=== PATIENT | male | born 1940 | race Hispanic/Latino ===

== ENCOUNTER 2021-11-02 14:06 | Inpatient (IN) | payer OTHER, MEDICAID, MEDICARE ==
[2021-11-02 14:50] LABS: Hemoglobin 10.5 g/dL (13.5-17.5); Mean Corpuscular HGB CONC 31.3 g/dL (32.0-36.0); Mean Corpuscular Hemoglobin 29.7 pg (27.0-33.0); Mean Corpuscular Volume 94.6 fl (81.2-95.1); Mean Platelet Volume 12.2 fl (7.4-10.4); Platelet Count 162 10x3/uL (150-450); RBC Distribution Width 13.7 % (11.5-14.5); Red Blood Cell (RBC) Count 3.54 10x6/uL (4.32-5.72); White Blood Cell (WBC) Count 5.3 10x3/uL (3.5-10.5)
[2021-11-02] MEDS ORDERED: Cefepime 2 GM VIAL ONE (14:50)
[2021-11-02 15:05] LABS: ALT (SGPT) 25 U/L (8-55); AST (SGOT) 23 U/L (5-34); Albumin 3.9 g/dL (3.4-4.8); Alkaline Phosphatase 186 U/L (40-110); Anion Gap 15 mmol/L (10-20); BUN (Urea Nitrogen) 30 mg/dL (8.4-25.7); Bilirubin, Total 0.6 mg/dL (0.2-1.2); CK (CPK) 177 U/L (30-200); Calc. Creatinine Clearance 0 mL/min (70-130); Carbon Dioxide 23 mmol/L (23-31); Chloride 107 mmol/L (98-107); Globulin 2.5 g/dL (2.4-3.5); Glucose 78 mg/dL (83-110); Lipase 18 U/L (8-78); Potassium 4.4 mmol/L (3.5-5.1); Protein, Total 6.4 g/dL (5.8-8.1); Sodium 141 mmol/L (136-145)
[2021-11-02 15:08] LABS: MDiff Complete? YES
[2021-11-02 15:10] LABS: Eosinophils 2 % (0-10); Lymphocytes 7 % (21-51); Monocytes 17 % (0-10); Neutrophil 74 % (42-75)
[2021-11-02 15:11] LABS: Platelet Morphology Comment Appears Adequate
[2021-11-02 15:40] LABS: SARS-CoV-2 NAA Rapid Test Not Detected (NotDetected)
[2021-11-02] MEDS ORDERED: ADMIXTURE FEE IVPB SCH (16:00)
[2021-11-02] MEDS ORDERED: SODIUM CHLORIDE IVPB SCH (16:00)
[2021-11-02] MEDS ORDERED: ACYCLOVIR SODIUM IVPB SCH (16:00)
[2021-11-02] MEDS ORDERED: Albuterol Sulfate 2.5 mg/3 ml Neb ONE (17:00)
[2021-11-02 17:25] LABS: Bilirubin Neg (Negative); Blood, Urine 10 (Negative); Clarity Clear (Clear); Glucose, Urine (Dipstick) Normal (Negative); Ketone, Urine 5 mg/dL (Negative); Leukocyte Negative (Negative); Nitrite Negative (Negative); Protein, Urine (Dipstick) 500 mg/dl (Neg-Trace); Specific Gravity, Urine 1.015 (1.002-1.036); Urobilinogen Normal mg/dL (Less than 2)
[2021-11-02 18:11] LABS: Bacteria/HPF 1+ HPF (None Seen); Mucous/LPF Rare LPF (<2+); RBC/HPF 0-3 HPF (0-3); Squamous Epithelial 0-3 HPF (0-3); WBC/HPF 0-3 HPF (0-3)
[2021-11-02] MEDS ORDERED: Ondansetron ODT 4 MG TAB PO PRN (19:19)
[2021-11-02] MEDS ORDERED: Acetaminophen 325 MG TAB PO PRN (19:19)
[2021-11-02] MEDS ORDERED: Dextrose 5% in Water 1,000 ML IV PRN (19:22)
[2021-11-02] MEDS ORDERED: Dextrose 50% Abboject 50 ML SYRINGE SLOW IVP PRN (19:22)
[2021-11-02] MEDS ORDERED: Ventolin HFA Inhaler 60 PUFF INHALER INH PRN (19:25)
[2021-11-02] MEDS ORDERED: hydrALAZINE 20 MG/ML VIAL SLOW IVP PRN (19:27)
[2021-11-02] MEDS ORDERED: Electrolyte Replacement Protocol FS SCH (19:30)
[2021-11-02] MEDS ORDERED: Furosemide 20 MG/2 ML VIAL SLOW IVP SCH (20:15)
[2021-11-02 20:45] LABS: CKMB 2.7 ng/mL (0-6.6)
[2021-11-02] MEDS ORDERED: Tacrolimus 1 MG CAP PO SCH (21:00)
[2021-11-02] MEDS: Atorvastatin Calcium 40 MG TAB PO SCH (21:02)
[2021-11-02] MEDS: traMADol HCl 50 MG TAB PO PRN (21:05)
[2021-11-02 21:23] VITALS: BMI 31.3
[2021-11-03] MEDS: Guaifenesin DM 100-10/5 ML UDCUP PO PRN ×4 (00:37→21:42)
[2021-11-03 04:33] LABS: Hemoglobin 9.8 g/dL (13.5-17.5); Mean Corpuscular HGB CONC 32.5 g/dL (32.0-36.0); Mean Corpuscular Volume 92.4 fl (81.2-95.1); Mean Platelet Volume 11.8 fl (7.4-10.4); Platelet Count 160 10x3/uL (150-450); RBC Distribution Width 13.5 % (11.5-14.5); Red Blood Cell (RBC) Count 3.27 10x6/uL (4.32-5.72); White Blood Cell (WBC) Count 4.2 10x3/uL (3.5-10.5)
[2021-11-03 04:45] LABS: Anion Gap 13 mmol/L (10-20); BUN (Urea Nitrogen) 31 mg/dL (8.4-25.7); Calc. Creatinine Clearance 39 mL/min (70-130); Calcium 8.8 mg/dL (7.8-10.44); Carbon Dioxide 24 mmol/L (23-31); Chloride 107 mmol/L (98-107); Glucose 108 mg/dL (83-110); Magnesium 1.8 mg/dL (1.6-2.6); Potassium 4.2 mmol/L (3.5-5.1); Sodium 140 mmol/L (136-145)
[2021-11-03] MEDS ORDERED: Vancomycin 1 GM in Premix Bag 1 BAG IVPB SCH (05:00)
[2021-11-03] MEDS ORDERED: Magnesium 2 GM/50 ML(in water) 2 GM in Premix Bag 1 BAG IVPB SCH (05:15)
[2021-11-03 05:26] LABS: MDiff Complete? YES
[2021-11-03 05:34] LABS: Band 2 % (5-11); Eosinophils 7 % (0-10); Lymphocytes 12 % (21-51); Monocytes 23 % (0-10); Neutrophil 53 % (42-75); Reactive Lymphocytes 2 % (0-10)
[2021-11-03 05:35] LABS: Platelet Morphology Comment Appears Adequate; RBC Morphology Normal
[2021-11-03] MEDS: traMADol HCl 50 MG TAB PO PRN ×3 (05:55→21:41)
[2021-11-03] MEDS: Furosemide 20 MG/2 ML VIAL SLOW IVP SCH (09:58)
[2021-11-03] MEDS: Tacrolimus 1 MG CAP PO SCH (09:58)
[2021-11-03] MEDS: Cefepime 1 GM in Sodium Chloride 0.9% 100 ML IVPB SCH ×2 (09:59→20:15)
[2021-11-03] MEDS: Aspirin 81 mg Enteric Coated Tablet PO SCH (09:59)
[2021-11-03] MEDS: Benzonatate 100 MG CAP PO SCH ×3 (09:59→20:16)
[2021-11-03] MEDS ORDERED: Dextrose 5% in Water 1,000 ML IV PRN (12:40)
[2021-11-03] MEDS ORDERED: Dextrose 50% Abboject 50 ML SYRINGE SLOW IVP PRN (12:40)
[2021-11-03] MEDS: HumaLOG 300 UNITS/3 ML VIAL SC PRN (14:15)
[2021-11-03] MEDS ORDERED: VANCOMYCIN 1.25 GM/250 ML BAG 1.25 GM in Premix Bag 1 BAG IVPB SCH (16:00)
[2021-11-03] MEDS: Atorvastatin Calcium 40 MG TAB PO SCH (20:16)
[2021-11-03] MEDS: Labetalol HCl 100 MG TAB PO SCH (20:16)
[2021-11-03] MEDS: Montelukast Sodium 10 mg Tablet PO SCH (20:16)
[2021-11-04 04:50] LABS: Hemoglobin 9.6 g/dL (13.5-17.5); Mean Corpuscular HGB CONC 32.8 g/dL (32.0-36.0); Mean Corpuscular Hemoglobin 29.9 pg (27.0-33.0); Mean Corpuscular Volume 91.3 fl (81.2-95.1); Mean Platelet Volume 11.5 fl (7.4-10.4); Platelet Count 164 10x3/uL (150-450); RBC Distribution Width 13.2 % (11.5-14.5); Red Blood Cell (RBC) Count 3.21 10x6/uL (4.32-5.72)
[2021-11-04 04:55] LABS: Anion Gap 12 mmol/L (10-20); BUN (Urea Nitrogen) 28 mg/dL (8.4-25.7); Calc. Creatinine Clearance 40 mL/min (70-130); Calcium 8.5 mg/dL (7.8-10.44); Carbon Dioxide 24 mmol/L (23-31); Chloride 102 mmol/L (98-107); Glucose 110 mg/dL (83-110); Potassium 3.9 mmol/L (3.5-5.1); Sodium 134 mmol/L (136-145)
[2021-11-04 06:33] LABS: MDiff Complete? YES
[2021-11-04 06:38] LABS: Band 3 % (5-11); Eosinophils 5 % (0-10); Lymphocytes 10 % (21-51); Monocytes 18 % (0-10); Neutrophil 61 % (42-75); Reactive Lymphocytes 1 % (0-10)
[2021-11-04 06:41] LABS: Platelet Morphology Comment Appears Adequate; RBC Morphology Normal
[2021-11-04] MEDS: Cefepime 1 GM in Sodium Chloride 0.9% 100 ML IVPB SCH ×2 (09:07→20:29)
[2021-11-04] MEDS: Amlodipine 10 MG TAB PO SCH (09:08)
[2021-11-04] MEDS: Aspirin 81 mg Enteric Coated Tablet PO SCH (09:08)
[2021-11-04] MEDS: Labetalol HCl 100 MG TAB PO SCH ×2 (09:09→20:28)
[2021-11-04] MEDS: Furosemide 20 MG/2 ML VIAL SLOW IVP SCH (09:09)
[2021-11-04] MEDS: Benzonatate 100 MG CAP PO SCH ×3 (09:09→20:28)
[2021-11-04] MEDS: Tacrolimus 1 MG CAP PO SCH (09:10)
[2021-11-04] MEDS ORDERED: Senokot S 8.6-50 MG TAB PO SCH (10:45)
[2021-11-04] MEDS: Guaifenesin DM 100-10/5 ML UDCUP PO PRN (13:46)
[2021-11-04 15:21] LABS: Vancomycin, Trough 12.4 ug/mL
[2021-11-04] MEDS: Vancomycin 1.5 GRAM/300 ML BAG 1.5 GM in Premix Bag 1 BAG IVPB SCH (16:40)
[2021-11-04] MEDS: Montelukast Sodium 10 mg Tablet PO SCH (20:28)
[2021-11-04] MEDS: Atorvastatin Calcium 40 MG TAB PO SCH (20:28)
[2021-11-04] MEDS: Senokot S 8.6-50 MG TAB PO SCH (20:34)
[2021-11-05] MEDS: Tacrolimus 1 MG CAP PO SCH (09:14)
[2021-11-05] MEDS: Amlodipine 10 MG TAB PO SCH (09:14)
[2021-11-05] MEDS: Aspirin 81 mg Enteric Coated Tablet PO SCH (09:14)
[2021-11-05] MEDS: Labetalol HCl 100 MG TAB PO SCH ×2 (09:15→21:54)
[2021-11-05] MEDS: Benzonatate 100 MG CAP PO SCH ×3 (09:15→21:41)
[2021-11-05] MEDS: Furosemide 20 MG/2 ML VIAL SLOW IVP SCH (09:15)
[2021-11-05] MEDS: Cefepime 1 GM in Sodium Chloride 0.9% 100 ML IVPB SCH ×2 (09:15→21:42)
[2021-11-05] MEDS: Senokot S 8.6-50 MG TAB PO SCH ×2 (09:15→21:41)
[2021-11-05] MEDS: Guaifenesin DM 100-10/5 ML UDCUP PO PRN ×3 (09:37→23:10)
[2021-11-05] MEDS: Vancomycin 1.5 GRAM/300 ML BAG 1.5 GM in Premix Bag 1 BAG IVPB SCH (15:25)
[2021-11-05] MEDS: Atorvastatin Calcium 40 MG TAB PO SCH (21:41)
[2021-11-05] MEDS: Montelukast Sodium 10 mg Tablet PO SCH (21:41)
[2021-11-06] MEDS: Guaifenesin DM 100-10/5 ML UDCUP PO PRN (03:40)
[2021-11-06] MEDS: Aspirin 81 mg Enteric Coated Tablet PO SCH (08:51)
[2021-11-06] MEDS: Tacrolimus 1 MG CAP PO SCH (08:51)
[2021-11-06] MEDS: Labetalol HCl 100 MG TAB PO SCH (08:52)
[2021-11-06] MEDS: Cefepime 1 GM in Sodium Chloride 0.9% 100 ML IVPB SCH (08:52)
[2021-11-06] MEDS: Benzonatate 100 MG CAP PO SCH (08:52)
[2021-11-06] MEDS: Senokot S 8.6-50 MG TAB PO SCH (08:52)
[2021-11-06] MEDS: Amlodipine 10 MG TAB PO SCH (08:52)
[2021-11-06] MEDS: Furosemide 20 MG/2 ML VIAL SLOW IVP SCH (08:52)
[2021-11-06 12:22] VITALS: BP 148/66; TEMP 97.7
[2021-11-06] MEDS: HumaLOG 300 UNITS/3 ML VIAL SC PRN (12:59)
== END 2021-11-06 14:00 | disposition home or self-care (01) | DRG 193 ==
LOC: CSHERS 14:06 → CSHTELE 18:20
PROVIDERS: ADMIT Internal Medicine; ATTEND Internal Medicine
DX: J15.9 Unspecified bacterial pneumonia (principal); I50.21 Acute systolic (congestive) heart failure; Z94.4 Liver transplant status; I13.0 Hypertensive heart and chronic kidney disease with heart failure and stage 1 through stage 4 chronic kidney disease, or unspecified chronic kidney disease; J12.89 Other viral pneumonia; E78.00 Pure hypercholesterolemia, unspecified; E11.22 Type 2 diabetes mellitus with diabetic chronic kidney disease; F41.9 Anxiety disorder, unspecified; K21.9 Gastro-esophageal reflux disease without esophagitis; Z20.822 Contact with and (suspected) exposure to COVID-19; C4A.9 Merkel cell carcinoma, unspecified; N18.30 Chronic kidney disease, stage 3 unspecified; B97.89 Other viral agents as the cause of diseases classified elsewhere; D63.1 Anemia in chronic kidney disease; Z79.4 Long term (current) use of insulin; Z85.038 Personal history of other malignant neoplasm of large intestine; Z85.05 Personal history of malignant neoplasm of liver; Z95.5 Presence of coronary angioplasty implant and graft; Z90.49 Acquired absence of other specified parts of digestive tract; Z87.891 Personal history of nicotine dependence
CPT/HCPCS: 36415; 36416; 80048; 80053; 80202; 81003; 81015; 82550; 82553; 83605; 83690; 83735; 83880; 84484; 85025; 87040; 87077; 87149; 87633; 93005; 93306; 94760; 94799; 96365; 96366; 96367; 96368; J0133; J0692; J1815; J1940; J3370; J3475; J3490; J7050; J7507; J7611; J7620; U0002

== ENCOUNTER 2022-02-23 13:06 | Inpatient (IN) | payer OTHER, MEDICAID ==
[2022-02-23 14:34] LABS: Hemoglobin 9.6 g/dL (13.5-17.5); MDiff Complete? YES; Mean Corpuscular HGB CONC 32.1 g/dL (32.0-36.0); Mean Corpuscular Hemoglobin 29.5 pg (27.0-33.0); Platelet Count 111 10x3/uL (150-450); RBC Distribution Width 13.3 % (11.5-14.5); Red Blood Cell (RBC) Count 3.25 10x6/uL (4.32-5.72); White Blood Cell (WBC) Count 4.1 10x3/uL (3.5-10.5)
[2022-02-23 14:42] LABS: ALT (SGPT) 18 U/L (8-55); AST (SGOT) 26 U/L (5-34); Albumin 3.7 g/dL (3.4-4.8); Alkaline Phosphatase 95 U/L (40-110); Anion Gap 17 mmol/L (10-20); BUN (Urea Nitrogen) 44 mg/dL (8.4-25.7); Bilirubin, Total 0.3 mg/dL (0.2-1.2); Calc. Creatinine Clearance 0 mL/min (70-130); Calcium 8.1 mg/dL (7.8-10.44); Carbon Dioxide 19 mmol/L (23-31); Chloride 107 mmol/L (98-107); Globulin 2.1 g/dL (2.4-3.5); Glucose 172 mg/dL (83-110); Potassium 5.1 mmol/L (3.5-5.1); Protein, Total 5.8 g/dL (5.8-8.1); Sodium 138 mmol/L (136-145)
[2022-02-23 14:57] LABS: CKMB 1.9 ng/mL (0-6.6)
[2022-02-23 15:21] LABS: Eosinophils 1 % (0-10); Lymphocytes 16 % (21-51); Monocytes 17 % (0-10); Neutrophil 66 % (42-75)
[2022-02-23 15:23] LABS: Platelet Morphology Comment Appears Decreased
[2022-02-23 15:27] LABS: Bilirubin Neg (Negative); Blood, Urine 25 (Negative); Clarity Clear (Clear); Glucose, Urine (Dipstick) Normal (Negative); Ketone, Urine Negative (Negative); Leukocyte Negative (Negative); Nitrite Negative (Negative); Protein, Urine (Dipstick) 500 mg/dl (Neg-Trace); Urobilinogen Normal mg/dL (Less than 2)
[2022-02-23 15:44] LABS: Bacteria/HPF Rare-Few HPF (None Seen); Squamous Epithelial 0-3 HPF (0-3); WBC/HPF 0-3 HPF (0-3)
[2022-02-23] MEDS ORDERED: Aspirin 325 MG TAB ONE (15:47)
[2022-02-23] MEDS ORDERED: Azithromycin 500 MG VIAL ONE (15:47)
[2022-02-23] MEDS ORDERED: cefTRIAXone\\ROCEPHIN 1 GM VIAL ONE (15:47)
[2022-02-23] MEDS ORDERED: Dextrose 50% Abboject 50 ML SYRINGE SLOW IVP PRN (17:04)
[2022-02-23] MEDS ORDERED: Dextrose 5% in Water 1,000 ML IV PRN (17:04)
[2022-02-23] MEDS ORDERED: Ondansetron ODT 4 MG TAB PO PRN (17:06)
[2022-02-23] MEDS ORDERED: Senokot S 8.6-50 MG TAB PO PRN (17:06)
[2022-02-23] MEDS ORDERED: Sodium Chloride 0.9% 1,000 ML IV SCH ×2 (17:15→18:03)
[2022-02-23 17:45] LABS: Magnesium 1.7 mg/dL (1.6-2.6)
[2022-02-23 17:47] LABS: Troponin I 0.041 ng/mL (< 0.028)
[2022-02-23] MEDS ORDERED: Nitroglycerin 0.4 MG TAB (25 Tab Bottle) SL PRN (17:57)
[2022-02-23 20:02] VITALS: BMI 28.1
[2022-02-23 20:19] LABS: Troponin I 0.053 ng/mL (< 0.028)
[2022-02-23] MEDS: traMADol HCl 50 MG TAB PO PRN (20:26)
[2022-02-23] MEDS: Atorvastatin Calcium 40 MG TAB PO SCH (20:26)
[2022-02-23] MEDS: Acetaminophen 325 MG TAB PO PRN (20:26)
[2022-02-23] MEDS: Enoxaparin Sodium 30 MG/0.3 ML SYRINGE SC SCH (20:27)
[2022-02-24 04:42] LABS: Hemoglobin 9.9 g/dL (13.5-17.5); Mean Corpuscular HGB CONC 33.2 g/dL (32.0-36.0); Mean Corpuscular Hemoglobin 29.8 pg (27.0-33.0); Mean Corpuscular Volume 89.8 fl (81.2-95.1); Mean Platelet Volume 12.4 fl (7.4-10.4); Platelet Count 111 10x3/uL (150-450); RBC Distribution Width 13.4 % (11.5-14.5); Red Blood Cell (RBC) Count 3.32 10x6/uL (4.32-5.72); White Blood Cell (WBC) Count 3.6 10x3/uL (3.5-10.5)
[2022-02-24 04:47] LABS: Legionella Urinary Ag Negative (Negative); Strep pneumo Urine Ag NEGATIVE (NEGATIVE)
[2022-02-24 04:59] LABS: Sodium 141 mmol/L (136-145)
[2022-02-24 05:00] LABS: Anion Gap 15 mmol/L (10-20); BUN (Urea Nitrogen) 39 mg/dL (8.4-25.7); Calc. Creatinine Clearance 31 mL/min (70-130); Calcium 8.4 mg/dL (7.8-10.44); Carbon Dioxide 20 mmol/L (23-31); Chloride 111 mmol/L (98-107); Glucose 116 mg/dL (83-110); Potassium 4.6 mmol/L (3.5-5.1)
[2022-02-24 05:28] LABS: MDiff Complete? YES
[2022-02-24 05:35] LABS: Band 4 % (5-11); Eosinophils 2 % (0-10); Lymphocytes 20 % (21-51); Monocytes 22 % (0-10); Neutrophil 50 % (42-75); Reactive Lymphocytes 1 % (0-10)
[2022-02-24 05:36] LABS: Platelet Morphology Comment Appears Decreased
[2022-02-24 05:37] LABS: RBC Morphology Normal
[2022-02-24] MEDS: Dexamethasone 20 MG/5 ML VIAL SLOW IVP SCH ×2 (09:28→20:40)
[2022-02-24] MEDS: Tacrolimus 1 MG CAP PO SCH (09:28)
[2022-02-24] MEDS: Amlodipine 10 MG TAB PO SCH (09:29)
[2022-02-24] MEDS: Aspirin 81 mg Enteric Coated Tablet PO SCH (09:29)
[2022-02-24] MEDS ORDERED: REMDESIVIR 100 MG in Sodium Chloride 0.9% 250 ML 230 ML IV SCH (15:15)
[2022-02-24] MEDS: cefTRIAXone\\ROCEPHIN 1 GM in Sodium Chloride 0.9% 100 ML IVPB SCH (16:27)
[2022-02-24] MEDS: Zinc Sulfate 220 MG CAP PO SCH (16:27)
[2022-02-24] MEDS: HumaLOG 300 UNITS/3 ML VIAL SC PRN ×2 (16:55→20:40)
[2022-02-24] MEDS: Azithromycin 500 MG in Sodium Chloride 0.9% 250 ML 250 ML IVPB SCH (17:53)
[2022-02-24] MEDS: Atorvastatin Calcium 40 MG TAB PO SCH (20:40)
[2022-02-24] MEDS: Enoxaparin Sodium 30 MG/0.3 ML SYRINGE SC SCH (20:40)
[2022-02-25] MEDS: Benzonatate 100 MG CAP PO PRN ×2 (02:51→23:10)
[2022-02-25] MEDS: Acetaminophen 325 MG TAB PO PRN (02:51)
[2022-02-25 04:58] LABS: Anion Gap 15 mmol/L (10-20); BUN (Urea Nitrogen) 41 mg/dL (8.4-25.7); Calc. Creatinine Clearance 33 mL/min (70-130); Calcium 8.3 mg/dL (7.8-10.44); Carbon Dioxide 19 mmol/L (23-31); Chloride 109 mmol/L (98-107); Glucose 204 mg/dL (83-110); Potassium 4.7 mmol/L (3.5-5.1); Sodium 138 mmol/L (136-145)
[2022-02-25 05:00] LABS: #Monocytes 0.1 10x3/uL (0.0-1.1); #Neutrophils 2.6 10x3/uL (1.5-8.4); %Lymphocytes 11.2 % (18.0-47.0); %Neutrophils 84.5 % (40.0-75.0); Hemoglobin 10.7 g/dL (13.5-17.5); Mean Corpuscular HGB CONC 33.8 g/dL (32.0-36.0); Mean Corpuscular Hemoglobin 29.8 pg (27.0-33.0); Mean Corpuscular Volume 88.3 fl (81.2-95.1); Mean Platelet Volume 12.3 fl (7.4-10.4); Platelet Count 142 10x3/uL (150-450); RBC Distribution Width 13.1 % (11.5-14.5); Red Blood Cell (RBC) Count 3.59 10x6/uL (4.32-5.72)
[2022-02-25] MEDS: HumaLOG 300 UNITS/3 ML VIAL SC PRN ×3 (06:08→15:35)
[2022-02-25] MEDS: Aspirin 81 mg Enteric Coated Tablet PO SCH (08:49)
[2022-02-25] MEDS: Guaifenesin DM 100-10/5 ML UDCUP PO PRN ×3 (08:49→23:10)
[2022-02-25] MEDS: Zinc Sulfate 220 MG CAP PO SCH (08:49)
[2022-02-25] MEDS: Dexamethasone 20 MG/5 ML VIAL SLOW IVP SCH ×2 (08:49→20:47)
[2022-02-25] MEDS: Amlodipine 10 MG TAB PO SCH (08:50)
[2022-02-25] MEDS: Tacrolimus 1 MG CAP PO SCH (09:00)
[2022-02-25] MEDS ORDERED: cefTRIAXone\\ROCEPHIN 1 GM VIAL ONE (15:26)
[2022-02-25] MEDS: cefTRIAXone\\ROCEPHIN 1 GM in Sodium Chloride 0.9% 100 ML IVPB SCH (15:37)
[2022-02-25] MEDS: Azithromycin 500 MG in Sodium Chloride 0.9% 250 ML 250 ML IVPB SCH (16:37)
[2022-02-25] MEDS: Enoxaparin Sodium 30 MG/0.3 ML SYRINGE SC SCH (20:47)
[2022-02-25] MEDS: Atorvastatin Calcium 40 MG TAB PO SCH (20:48)
[2022-02-26 04:36] LABS: #Monocytes 0.4 10x3/uL (0.0-1.1); #Neutrophils 6.8 10x3/uL (1.5-8.4); %Basophils 0.1 % (0.0-2.0); %Lymphocytes 5.6 % (18.0-47.0); %Monocytes 5.2 % (0.0-10.0); %Neutrophils 88.3 % (40.0-75.0); Hemoglobin 10.3 g/dL (13.5-17.5); Mean Corpuscular HGB CONC 33.1 g/dL (32.0-36.0); Mean Corpuscular Hemoglobin 29.7 pg (27.0-33.0); Mean Corpuscular Volume 89.6 fl (81.2-95.1); Mean Platelet Volume 12.7 fl (7.4-10.4); Platelet Count 165 10x3/uL (150-450); RBC Distribution Width 13.1 % (11.5-14.5); Red Blood Cell (RBC) Count 3.47 10x6/uL (4.32-5.72); White Blood Cell (WBC) Count 7.7 10x3/uL (3.5-10.5)
[2022-02-26 04:48] LABS: Anion Gap 14 mmol/L (10-20); BUN (Urea Nitrogen) 52 mg/dL (8.4-25.7); Calc. Creatinine Clearance 30 mL/min (70-130); Calcium 8.1 mg/dL (7.8-10.44); Carbon Dioxide 19 mmol/L (23-31); Chloride 109 mmol/L (98-107); Glucose 250 mg/dL (83-110); Potassium 4.9 mmol/L (3.5-5.1); Sodium 137 mmol/L (136-145)
[2022-02-26] MEDS: Acetaminophen 325 MG TAB PO PRN (05:29)
[2022-02-26] MEDS: Benzonatate 100 MG CAP PO PRN ×2 (08:08→20:04)
[2022-02-26] MEDS: Amlodipine 10 MG TAB PO SCH (08:08)
[2022-02-26] MEDS: Dexamethasone 20 MG/5 ML VIAL SLOW IVP SCH ×2 (08:08→19:57)
[2022-02-26] MEDS: Guaifenesin DM 100-10/5 ML UDCUP PO PRN ×2 (08:08→20:04)
[2022-02-26] MEDS: Aspirin 81 mg Enteric Coated Tablet PO SCH (08:08)
[2022-02-26] MEDS: Zinc Sulfate 220 MG CAP PO SCH (08:09)
[2022-02-26] MEDS: Tacrolimus 1 MG CAP PO SCH (08:11)
[2022-02-26] MEDS: HumaLOG 300 UNITS/3 ML VIAL SC PRN ×2 (12:16→20:09)
[2022-02-26] MEDS: cefTRIAXone\\ROCEPHIN 1 GM in Sodium Chloride 0.9% 100 ML IVPB SCH (17:00)
[2022-02-26] MEDS: Azithromycin 500 MG in Sodium Chloride 0.9% 250 ML 250 ML IVPB SCH (17:00)
[2022-02-26] MEDS: Enoxaparin Sodium 30 MG/0.3 ML SYRINGE SC SCH (19:57)
[2022-02-26] MEDS: Atorvastatin Calcium 40 MG TAB PO SCH (19:58)
[2022-02-26] MEDS: traMADol HCl 50 MG TAB PO PRN (20:26)
[2022-02-27 04:50] LABS: #Monocytes 0.4 10x3/uL (0.0-1.1); #Neutrophils 7.3 10x3/uL (1.5-8.4); %Basophils 0.1 % (0.0-2.0); %Lymphocytes 4.5 % (18.0-47.0); %Monocytes 5.4 % (0.0-10.0); %Neutrophils 88.8 % (40.0-75.0); Hemoglobin 10.8 g/dL (13.5-17.5); Mean Corpuscular HGB CONC 33.4 g/dL (32.0-36.0); Mean Corpuscular Hemoglobin 29.9 pg (27.0-33.0); Mean Corpuscular Volume 89.5 fl (81.2-95.1); Mean Platelet Volume 12.7 fl (7.4-10.4); Platelet Count 168 10x3/uL (150-450); RBC Distribution Width 12.8 % (11.5-14.5); Red Blood Cell (RBC) Count 3.61 10x6/uL (4.32-5.72); White Blood Cell (WBC) Count 8.2 10x3/uL (3.5-10.5)
[2022-02-27 05:08] LABS: Anion Gap 16 mmol/L (10-20); BUN (Urea Nitrogen) 59 mg/dL (8.4-25.7); CRP (Inflammatory) Less than 0.50 mg/dL (= or < 0.5); Calc. Creatinine Clearance 33 mL/min (70-130); Calcium 8.2 mg/dL (7.8-10.44); Carbon Dioxide 19 mmol/L (23-31); Chloride 107 mmol/L (98-107); Glucose 271 mg/dL (83-110); Potassium 4.9 mmol/L (3.5-5.1); Sodium 137 mmol/L (136-145)
[2022-02-27] MEDS: HumaLOG 300 UNITS/3 ML VIAL SC PRN ×3 (05:22→20:30)
[2022-02-27] MEDS: traMADol HCl 50 MG TAB PO PRN (05:42)
[2022-02-27] MEDS: Benzonatate 100 MG CAP PO PRN ×3 (05:42→20:30)
[2022-02-27] MEDS: Guaifenesin DM 100-10/5 ML UDCUP PO PRN ×3 (05:42→20:29)
[2022-02-27] MEDS: Dexamethasone 20 MG/5 ML VIAL SLOW IVP SCH (08:21)
[2022-02-27] MEDS: Amlodipine 10 MG TAB PO SCH (08:22)
[2022-02-27] MEDS: Zinc Sulfate 220 MG CAP PO SCH (08:22)
[2022-02-27] MEDS: Tacrolimus 1 MG CAP PO SCH (08:22)
[2022-02-27] MEDS: Furosemide 40 MG TAB PO PRN (08:22)
[2022-02-27] MEDS: Aspirin 81 mg Enteric Coated Tablet PO SCH (08:22)
[2022-02-27] MEDS: cefTRIAXone\\ROCEPHIN 1 GM in Sodium Chloride 0.9% 100 ML IVPB SCH (17:18)
[2022-02-27] MEDS: Azithromycin 500 MG in Sodium Chloride 0.9% 250 ML 250 ML IVPB SCH (17:19)
[2022-02-27] MEDS: Atorvastatin Calcium 40 MG TAB PO SCH (20:30)
[2022-02-27] MEDS: Enoxaparin Sodium 30 MG/0.3 ML SYRINGE SC SCH (20:31)
[2022-02-28] MEDS: Acetaminophen 325 MG TAB PO PRN (04:37)
[2022-02-28] MEDS: traMADol HCl 50 MG TAB PO PRN (05:26)
[2022-02-28] MEDS: HumaLOG 300 UNITS/3 ML VIAL SC PRN (06:41)
[2022-02-28] MEDS: Amlodipine 10 MG TAB PO SCH (08:27)
[2022-02-28] MEDS: Zinc Sulfate 220 MG CAP PO SCH (08:27)
[2022-02-28] MEDS: Furosemide 40 MG TAB PO PRN (08:28)
[2022-02-28] MEDS: Aspirin 81 mg Enteric Coated Tablet PO SCH (08:28)
[2022-02-28] MEDS: Tacrolimus 1 MG CAP PO SCH (08:28)
[2022-02-28] MEDS: Benzonatate 100 MG CAP PO PRN (08:28)
[2022-02-28] MEDS ORDERED: Dexamethasone 20 MG/5 ML VIAL SLOW IVP SCH (09:00)
[2022-02-28 11:48] VITALS: BP 143/82; TEMP 97
== END 2022-02-28 12:41 | disposition home or self-care (01) | DRG 177 ==
LOC: CSHERS 13:06 → CSHTELE 19:04
PROVIDERS: ADMIT Hospitalist; ATTEND Family Medicine
PROC: 8E0ZXY6 Isolation (ICD-10-PCS; principal; 2022-02-23)
DX: U07.1 COVID-19 (principal); J12.82 Pneumonia due to coronavirus disease 2019; J96.21 Acute and chronic respiratory failure with hypoxia; I21.A1 Myocardial infarction type 2; Z94.4 Liver transplant status; Q60.0 Renal agenesis, unilateral; N17.9 Acute kidney failure, unspecified; I25.10 Atherosclerotic heart disease of native coronary artery without angina pectoris; D69.6 Thrombocytopenia, unspecified; E11.9 Type 2 diabetes mellitus without complications; K21.9 Gastro-esophageal reflux disease without esophagitis; E78.5 Hyperlipidemia, unspecified; C4A.4 Merkel cell carcinoma of scalp and neck; I11.9 Hypertensive heart disease without heart failure; Z79.82 Long term (current) use of aspirin; Z95.5 Presence of coronary angioplasty implant and graft; Z79.899 Other long term (current) drug therapy; Z85.038 Personal history of other malignant neoplasm of large intestine; Z90.49 Acquired absence of other specified parts of digestive tract; Z88.8 Allergy status to other drugs, medicaments and biological substances
CPT/HCPCS: 36415; 36416; 71045; 71250; 80048; 80053; 81003; 81015; 82553; 82728; 83605; 83615; 83735; 84145; 84484; 85025; 86140; 87040; 87070; 87205; 87449; 87899; 93005; 94760; 96365; 96367; J0456; J0696; J1100; J1650; J1815; J3490; J7050; J7507

== ENCOUNTER 2022-06-15 18:18 | Inpatient (IN) | payer OTHER, MEDICAID ==
[2022-06-15 19:08] LABS: Hemoglobin 8.4 g/dL (13.5-17.5); Mean Corpuscular HGB CONC 32.8 g/dL (32.0-36.0); Mean Corpuscular Hemoglobin 30.7 pg (27.0-33.0); Mean Corpuscular Volume 93.4 fl (81.2-95.1); Platelet Count 84 10x3/uL (150-450); RBC Distribution Width 13.6 % (11.5-14.5); Red Blood Cell (RBC) Count 2.74 10x6/uL (4.32-5.72); White Blood Cell (WBC) Count 5.3 10x3/uL (3.5-10.5)
[2022-06-15] MEDS ORDERED: Aspirin Chewable 81 MG TAB ONE (19:13)
[2022-06-15 19:19] LABS: ALT (SGPT) 11 U/L (8-55); AST (SGOT) 18 U/L (5-34); Alkaline Phosphatase 83 U/L (40-110); Anion Gap 18 mmol/L (10-20); BUN (Urea Nitrogen) 93 mg/dL (8.4-25.7); Bilirubin, Total 0.5 mg/dL (0.2-1.2); Calc. Creatinine Clearance 0 mL/min (70-130); Calcium 9.1 mg/dL (7.8-10.44); Carbon Dioxide 27 mmol/L (23-31); Chloride 97 mmol/L (98-107); Estimated GFR 12; Glucose 87 mg/dL (83-110); Potassium 4.1 mmol/L (3.5-5.1); Sodium 138 mmol/L (136-145)
[2022-06-15 19:39] LABS: CKMB 0.8 ng/mL (0-6.6)
[2022-06-15 19:42] LABS: MDiff Complete? YES
[2022-06-15 19:45] LABS: Bilirubin Neg (Negative); Blood, Urine Negative (Negative); Glucose, Urine (Dipstick) Normal (Negative); Ketone, Urine Negative (Negative); Leukocyte Negative (Negative); Nitrite Negative (Negative); Protein, Urine (Dipstick) 500 mg/dl (Neg-Trace); Specific Gravity, Urine 1.005 (1.005-1.030); Urobilinogen Normal mg/dL (Less than 2); pH, Urine 6.5 (5.0-9.0)
[2022-06-15 19:45] LABS: Eosinophils 1 % (0-10); Lymphocytes 23 % (21-51); Monocytes 9 % (0-10); Neutrophil 67 % (42-75)
[2022-06-15 19:46] LABS: Clarity Clear (Clear)
[2022-06-15 19:47] LABS: Hypochromia SLIGHT = 6-15 cells (100X) (0-5/hpf); Ovalocytes SLIGHT = 2-5 cells (100X) (0-1/hpf); Platelet Morphology Comment Appears Decreased
[2022-06-15 19:59] LABS: Bacteria/HPF Rare-Few HPF (None Seen); RBC/HPF None Seen HPF (0-3); Squamous Epithelial 0-3 HPF (0-3); Transitional Epithelial 0-3 HPF (None Seen); WBC/HPF 0-3 HPF (0-3)
[2022-06-15] MEDS ORDERED: Nitroglycerin 0.4mg/Hour PATCH ONE (21:07)
[2022-06-15] MEDS ORDERED: Calcium Carbonate 500 MG ChewTAB PO PRN (21:43)
[2022-06-15] MEDS ORDERED: Senokot S 8.6-50 MG TAB PO PRN (21:43)
[2022-06-15] MEDS ORDERED: Guaifenesin DM 100-10/5 ML UDCUP PO PRN (21:43)
[2022-06-15] MEDS ORDERED: Acetaminophen 325 MG TAB PO PRN (21:43)
[2022-06-15] MEDS ORDERED: Ondansetron PF 4 MG/2 ML Vial IVP PRN (21:43)
[2022-06-15] MEDS ORDERED: Benzonatate 100 MG CAP PO PRN (21:47)
[2022-06-15] MEDS ORDERED: Sodium Chloride 0.9% 1,000 ML IV SCH (22:00)
[2022-06-15 22:24] LABS: Troponin I 0.064 ng/mL (< 0.028)
[2022-06-15] MEDS ORDERED: Atorvastatin Calcium 40 MG TAB PO SCH (22:30)
[2022-06-15] MEDS ORDERED: hydrALAZINE 25 MG TAB PO SCH (22:30)
[2022-06-15] MEDS ORDERED: Montelukast Sodium 10 mg Tablet PO SCH (22:30)
[2022-06-15] MEDS ORDERED: Tacrolimus 1 MG CAP PO SCH (22:30)
[2022-06-15] MEDS ORDERED: Sodium Bicarbonate Tab 325 MG TAB PO SCH (22:30)
[2022-06-15] MEDS ORDERED: hydrALAZINE 25 MG TAB ONE (22:47)
[2022-06-15] MEDS ORDERED: Atorvastatin Calcium 40 MG TAB ONE (22:48)
[2022-06-16 00:22] LABS: CKMB 0.8 ng/mL (0-6.6)
[2022-06-16 03:36] LABS: Hemoglobin 7.8 g/dL (13.5-17.5); Mean Corpuscular HGB CONC 32.9 g/dL (32.0-36.0); Mean Corpuscular Hemoglobin 30.5 pg (27.0-33.0); Mean Corpuscular Volume 92.6 fl (81.2-95.1); Mean Platelet Volume 12.2 fl (7.4-10.4); Platelet Count 80 10x3/uL (150-450); RBC Distribution Width 13.4 % (11.5-14.5); Red Blood Cell (RBC) Count 2.56 10x6/uL (4.32-5.72); White Blood Cell (WBC) Count 4.7 10x3/uL (3.5-10.5)
[2022-06-16 03:44] LABS: Anion Gap 15 mmol/L (10-20); BUN (Urea Nitrogen) 87 mg/dL (8.4-25.7); Calc. Creatinine Clearance 0 mL/min (70-130); Calcium 8.9 mg/dL (7.8-10.44); Carbon Dioxide 27 mmol/L (23-31); Chloride 101 mmol/L (98-107); Estimated GFR 14; Glucose 103 mg/dL (83-110); Potassium 3.7 mmol/L (3.5-5.1); Sodium 139 mmol/L (136-145)
[2022-06-16 03:57] LABS: MDiff Complete? YES
[2022-06-16 04:02] LABS: Eosinophils 2 % (0-10); Lymphocytes 18 % (21-51); Monocytes 16 % (0-10); Neutrophil 64 % (42-75)
[2022-06-16 04:03] LABS: Ovalocytes SLIGHT = 2-5 cells (100X) (0-1/hpf); Platelet Morphology Comment Appears Decreased
[2022-06-16 04:08] LABS: CKMB 0.8 ng/mL (0-6.6)
[2022-06-16] MEDS: Carvedilol 25 MG TAB PO SCH ×2 (07:25→18:20)
[2022-06-16] MEDS: Sodium Bicarbonate Tab 325 MG TAB PO SCH ×3 (07:26→20:23)
[2022-06-16] MEDS: Folic Acid/Vit B Comp W-C PO SCH (07:27)
[2022-06-16] MEDS: Tacrolimus 1 MG CAP PO SCH (07:27)
[2022-06-16] MEDS: Aspirin 81 mg Enteric Coated Tablet PO SCH (07:27)
[2022-06-16] MEDS: hydrALAZINE 25 MG TAB PO SCH ×3 (07:27→21:23)
[2022-06-16] MEDS ORDERED: Aspirin 81 mg Enteric Coated Tablet ONE (07:36)
[2022-06-16] MEDS ORDERED: hydrALAZINE 25 MG TAB ONE (07:37)
[2022-06-16] MEDS ORDERED: Sodium Chloride 0.65% Nasal 44 ML BOT EA NARE PRN (16:23)
[2022-06-16] MEDS ORDERED: Atorvastatin Calcium 40 MG TAB PO SCH (21:00)
[2022-06-16] MEDS ORDERED: Tacrolimus 1 MG CAP PO SCH (21:00)
[2022-06-16] MEDS ORDERED: Montelukast Sodium 10 mg Tablet PO SCH (21:00)
[2022-06-16 21:23] VITALS: BMI 28.0
[2022-06-17 05:42] LABS: Hemoglobin 7.8 g/dL (13.5-17.5); Mean Corpuscular HGB CONC 32.6 g/dL (32.0-36.0); Mean Corpuscular Hemoglobin 30.2 pg (27.0-33.0); Mean Corpuscular Volume 92.6 fl (81.2-95.1); Platelet Count 80 10x3/uL (150-450); RBC Distribution Width 13.6 % (11.5-14.5); Red Blood Cell (RBC) Count 2.58 10x6/uL (4.32-5.72); White Blood Cell (WBC) Count 4.9 10x3/uL (3.5-10.5)
[2022-06-17 05:55] LABS: Anion Gap 16 mmol/L (10-20); BUN (Urea Nitrogen) 82 mg/dL (8.4-25.7); Calc. Creatinine Clearance 19 mL/min (70-130); Calcium 8.7 mg/dL (7.8-10.44); Carbon Dioxide 24 mmol/L (23-31); Chloride 103 mmol/L (98-107); Estimated GFR 17; Glucose 109 mg/dL (83-110); Potassium 4.2 mmol/L (3.5-5.1); Sodium 139 mmol/L (136-145)
[2022-06-17 10:00] VITALS: BP 168/77; TEMP 98.5
[2022-06-17] MEDS: Aspirin 81 mg Enteric Coated Tablet PO SCH (11:59)
[2022-06-17] MEDS: Sodium Bicarbonate Tab 325 MG TAB PO SCH (11:59)
[2022-06-17] MEDS: Carvedilol 25 MG TAB PO SCH (12:00)
[2022-06-17] MEDS: Tacrolimus 1 MG CAP PO SCH (12:06)
[2022-06-17] MEDS: hydrALAZINE 25 MG TAB PO SCH (12:06)
[2022-06-17] MEDS: Folic Acid/Vit B Comp W-C PO SCH (12:06)
[2022-06-17] MEDS ORDERED: Atorvastatin Calcium 40 MG TAB PO SCH (21:00)
[2022-06-21 10:11] LABS: Tacrolimus 5.2 ng/mL (2.0-20.0)
== END 2022-06-17 13:48 | disposition home or self-care (01) | DRG 682 ==
LOC: CSHERS 18:18 → CSHERHOLD 21:59 → CSHTELE 06-16 08:43
PROVIDERS: ADMIT Student in an Organized Health Care Education/Training Program; ATTEND Internal Medicine
DX: N17.9 Acute kidney failure, unspecified (principal); I21.A1 Myocardial infarction type 2; I50.42 Chronic combined systolic (congestive) and diastolic (congestive) heart failure; C18.9 Malignant neoplasm of colon, unspecified; Z94.4 Liver transplant status; G45.9 Transient cerebral ischemic attack, unspecified; Q60.0 Renal agenesis, unilateral; I13.2 Hypertensive heart and chronic kidney disease with heart failure and with stage 5 chronic kidney disease, or end stage renal disease; N18.5 Chronic kidney disease, stage 5; E78.5 Hyperlipidemia, unspecified; I25.10 Atherosclerotic heart disease of native coronary artery without angina pectoris; C4A.9 Merkel cell carcinoma, unspecified; D69.6 Thrombocytopenia, unspecified; D63.1 Anemia in chronic kidney disease; Z79.82 Long term (current) use of aspirin; Z79.899 Other long term (current) drug therapy; Z95.5 Presence of coronary angioplasty implant and graft
CPT/HCPCS: 36415; 36416; 70450; 70551; 71045; 76770; 80048; 80053; 80197; 81003; 81015; 82550; 82553; 83880; 84484; 85025; 85027; 93005; 93306; J7050; J7507; U0003; U0005

== ENCOUNTER 2022-09-27 16:33 | Emergency (ER) | payer OTHER, MEDICAID ==
[2022-09-27 17:29] LABS: ALT (SGPT) Less than 6 U/L (8-55); AST (SGOT) 37 U/L (5-34); Alkaline Phosphatase 85 U/L (40-110); Anion Gap 15 mmol/L (10-20); BUN (Urea Nitrogen) 45 mg/dL (8.4-25.7); Bilirubin, Total 0.6 mg/dL (0.2-1.2); Calc. Creatinine Clearance 0 mL/min (70-130); Calcium 8.4 mg/dL (7.8-10.44); Carbon Dioxide 27 mmol/L (23-31); Chloride 106 mmol/L (98-107); Estimated GFR 13; Globulin 1.9 g/dL (2.4-3.5); Glucose 111 mg/dL (83-110); Hemoglobin 6.2 g/dL (13.5-17.5); Mean Corpuscular Hemoglobin 30.2 pg (27.0-33.0); Mean Corpuscular Volume 97.6 fl (81.2-95.1); Mean Platelet Volume 12.3 fl (7.4-10.4); Platelet Count 187 10x3/uL (150-450); Potassium 3.6 mmol/L (3.5-5.1); Protein, Total 4.9 g/dL (5.8-8.1); RBC Distribution Width 16.3 % (11.5-14.5); Red Blood Cell (RBC) Count 2.05 10x6/uL (4.32-5.72); Sodium 144 mmol/L (136-145); White Blood Cell (WBC) Count 5.9 10x3/uL (3.5-10.5)
[2022-09-27 17:52] LABS: CKMB 1.6 ng/mL (0-6.6)
[2022-09-27 18:53] LABS: Band 3 % (5-11); Lymphocytes 14 % (21-51); Metamyelocyte 1 % (0-0); Monocytes 23 % (0-10); Neutrophil 53 % (42-75)
[2022-09-27] MEDS ORDERED: Furosemide 40 MG/4 ML VIAL ONE (18:53)
[2022-09-27 18:54] LABS: Eosinophils 2 % (0-10); Nucleated RBC 1 % (0)
[2022-09-27 18:55] LABS: Anisocytosis SLIGHT = 6-15 cells (100X) (0-5/hpf); Microcytosis SLIGHT = 6-15 cells (100X) (0-5/hpf); Ovalocytes MODERATE= 6-15 cells (100X) (0-1/hpf); Polychromasia SLIGHT = 2-3 cells (100X) (0-2/hpf)
[2022-09-27 18:58] LABS: Elliptocytes SLIGHT = 2-5 cells (100X) (0-1/hpf)
[2022-09-27 18:59] LABS: Large Platelets MODERATE; Platelet Morphology Comment Appears Adequate
[2022-09-27 19:00] LABS: MDiff Complete? YES
[2022-09-27 20:22] LABS: SARS-CoV-2 NAA Rapid Test Not Detected (NotDetected)
== END 2022-09-27 20:27 | disposition short-term general hospital (02) ==
LOC: CSHERS 16:33
DX: E10.22 Type 1 diabetes mellitus with diabetic chronic kidney disease (principal); N18.6 End stage renal disease; I50.9 Heart failure, unspecified; D63.1 Anemia in chronic kidney disease; Z99.2 Dependence on renal dialysis; Z20.822 Contact with and (suspected) exposure to COVID-19
CPT/HCPCS: 0240U; 71045; 80053; 82553; 83880; 84484; 85025; 85379; 86850; 86900; 86901; 86920; 93005; 93970; 36415; J1940